=== PATIENT | female | born 1960 | race Two or more races ===

== ENCOUNTER → 2017-12-29 | Outpatient (CLI) | payer OTHER | LOC: CIMAGING 13:41 | PROVIDERS: ATTEND Internal Medicine | DX: Z12.31 Encounter for screening mammogram for malignant neoplasm of breast (principal) ==

== ENCOUNTER → 2018-04-27 | Outpatient (CLI) | payer OTHER | LOC: CIMAGING 14:05 | PROVIDERS: ATTEND Emergency Medicine | DX: R05 Cough (principal) | CPT/HCPCS: 71046-PO ==